=== PATIENT | male | born 1940 | race Caucasian/White ===

== ENCOUNTER 2016-12-01 10:17 | Emergency (ER) | payer MEDICARE ==
[2016-12-01] MEDS ORDERED: Albuterol/Ipratropium 3.0-0.5 MG/3 ML Neb Soln NEB PRN ×2 (13:16→17:54)
--- NOTE | 2016-12-01 13:20 | EDM.PDOC ---
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 uses oxygen normally with activity and bipap and oxygen for sleep. Has a pressure sensation in the mid chest. Denies cough. has had more wheezing. Denies fevers, although has felt chilled. No hx of CHF. Onset Date: 11/29/16 Duration: Getting Worse Location: Reports: Chest Quality: Reports: Pressure Severity: Mild Improves with: Reports: Rest Worsens with: Reports: Movement Context: Reports: Activity Associated Symptoms: Reports: Chest Pain, Fever/Chills, Shortness of Breath. Denies: Cough, Loss of Appetite, Nausea/Vomiting Chest Pain Score (Numeric/FACES): 4 - Related Data Allergies Allergy/AdvReac Type Severity Reaction Status Date / Time amitriptyline Allergy Cannot Verified 12/01/16 11:10 Remember imipenem Allergy Cannot Verified 12/01/16 11:10 Remember Sulfa (Sulfonamide Allergy Rash Verified 12/01/16 11:10 Antibiotics) Home Meds: Home Meds Albuterol/Ipratropium [DuoNeb 3.0-0.5 MG/3 ML] 3 ml .XX QID PRN #1 box 12/01/16 [Rx] Aspirin [Children's Aspirin] 81 mg PO DAILY 12/01/16 [History] Cetirizine [ZyrTEC] 10 mg PO DAILY 12/01/16 [History] Cyanocobalamin (Vitamin B12) [Vitamin B13] 500 mcg PO DAILY 12/01/16 [History] Diphenoxylate HCl/Atropine [Lomotil Tablet] 1 each PO ASDIRECTED PRN 12/01/16 [ History] Esomeprazole [NexIUM] 40 mg PO ACBREAKFAST 12/01/16 [History] Fluticasone/Salmeterol [Advair 250-50 Diskus] 1 each IH BID 12/01/16 [History] Furosemide [Lasix] 20 mg PO ASDIRECTED 12/01/16 [History] Ipratropium [Atrovent 0.06% Nasal [place]] 2 sprays TOP QID PRN 12/01/16 [History] Levalbuterol Tartrate [Xopenex Hfa] 2 puff IN ASDIRECTED PRN 12/01/16 [History] Levothyroxine Sodium [Synthroid] 175 mcg PO ACBREAKFAST 12/01/16 [History] SUMAtriptan [Imitrex] 50 mg PO ASDIRECTED PRN 12/01/16 [History] Tiotropium [Spiriva] 18 mcg INH DAILY 12/01/16 [History] atorvaSTATin Calcium [Atorvastatin Calcium] 20 mg PO BEDTIME 12/01/16 [History] Past Medical History HEENT History: Reports: Cataract Other HEENT History: sensorineural hearing loss Cardiovascular History: Reports: CAD, High Cholesterol, [place], Stents Respiratory History: Reports: Bronchitis, Recurrent, COPD, Interstitial Lung Disease, Sleep Apnea, SOB Other Respiratory History: bi-pap. tracheitis. chronic respiratory failure with hypoxia Gastrointestinal History: Reports: Colon Polyp, GERD Genitourinary History: Reports: Urinary Incontinence, Other (See Below) Other Genitourinary History: over active bladder. ED Musculoskeletal History: Reports: Fracture Other Musculoskeletal History: left ankle Neurological History: Reports: Brain Injury, Head Trauma, Migraines, Seizure Other Neuro History: Peti mal Endocrine/Metabolic History: Reports: Obesity/BMI 30+, Other (See Below) Other Endocrine/Metabolic History: Elvis disease Hematologic History: Reports: Anemia Oncologic (Cancer) History: Reports: Prostate - Infectious Disease History Infectious Disease History: Reports: Chicken Pox, Measles, Mumps, Shingles - Past Surgical History HEENT Surgical History: Reports: Cataract Surgery Cardiovascular Surgical History: Reports: Coronary Artery Stent, Percutaneous Transluminal Angioplasty GI Surgical History: Reports: Appendectomy, Cholecystectomy, Colonoscopy, EGD, Hernia Repair/Other, Polypectomy, Other (See Below) Other GI Surgeries/Procedures: esphogeal dilation Male Surgical History: Reports: Prostatectomy Other Endocrine Surgeries/Procedures: partial thyroidectomy Social & Family History - Tobacco Use Smoking Status *Q: Never Smoker - Caffeine Use Caffeine Use: Reports: Coffee - Recreational Drug Use Recreational Drug Use: No ED ROS GENERAL - Review of Systems Review Of Systems: See Below Constitutional: Reports: Chills. Denies: Fever, Decreased Appetite HEENT: Reports: No Symptoms Respiratory: Reports: Shortness of Breath, Wheezing. Denies: Pleuritic Chest Pain, Cough, Sputum Cardiovascular: Reports: Chest Pain, Dyspnea on Exertion. Denies: Edema, Lightheadedness Endocrine: Reports: No Symptoms GI/Abdominal: Reports: No Symptoms : Reports: No Symptoms Musculoskeletal: Reports: No Symptoms Skin: Reports: No Symptoms Neurological: Reports: No Symptoms Psychiatric: Reports: No Symptoms Hematologic/Lymphatic: Reports: No Symptoms ED EXAM, GENERAL - Physical Exam Exam: See Below Exam Limited By: No Limitations General Appearance: Alert, WD/WN, No Apparent Distress Ears: Normal External Exam, Normal Canal, Normal TMs Nose: Normal Inspection, Normal Mucosa, No Blood Throat/Mouth: Normal Inspection Head: Atraumatic, Normocephalic Neck: Normal Inspection, Supple, Non-Tender Respiratory/Chest: No Respiratory Distress, Crackles (bilaterally) Cardiovascular: Normal Peripheral Pulses, Regular Rate, Rhythm, No Edema GI/Abdominal: Normal Bowel Sounds, Soft Back Exam: Normal Inspection, Full Range of Motion Extremities: Normal Inspection, No Pedal Edema, Normal Capillary Refill Neurological: Alert, Oriented, CN II-XII Intact Psychiatric: Normal Affect, Normal Mood Skin Exam: Warm, Dry Lymphatic: No Adenopathy Course - Vital Signs Last Recorded V/S: Last Vital Signs Temp 36.5 C 12/01/16 10:57 Pulse 66 12/01/16 17:54 Resp 18 12/01/16 17:54 BP 136/76 12/01/16 17:54 Pulse Ox 93 L 12/01/16 17:54 - Orders/Labs/Meds Labs: Laboratory Tests 12/01/16 12/01/16 12/01/16 Range/Units 13:23 13:23 13:23 WBC 7.1 (4.5-11.0) K/uL RBC 5.09 (4.30-5.90) M/uL Hgb 15.4 H (12.0-15.0) g/dL Hct 45.9 (40.0-54.0) % MCV 90 (80-98) fL MCH 30 (27-31) pg MCHC 34 (32-36) % Plt Count 263 (150-400) K/uL Neut % (Auto) 60 (36-66) % Lymph % (Auto) 27 (24-44) % Todd % (Auto) 9 H (2-6) % Eos % (Auto) 3 (2-4) % Baso % (Auto) 0 (0-1) % D-Dimer, Quantitative 630 H (0.0-400.0) ng/mL Sodium 142 (140-148) mmol/L Potassium 4.5 (3.6-5.2) mmol/L Chloride 106 (100-108) mmol/L Carbon Dioxide 28 (21-32) mmol/L Anion Gap 7.8 (5.0-14.0) mmol/L BUN 18 (7-18) mg/dL Creatinine 1.1 (0.8-1.3) mg/dL Est Cr Clr Drug Dosing 64.57 mL/min Estimated GFR (MDRD) > 60 (>60) Glucose 104 (74-106) mg/dL Calcium 8.4 L (8.5-10.1) mg/dL Troponin I < 0.017 (0.000-0.056) ng/mL [id number] Pept 89 (5-450) pg/mL Meds: Medications Discontinued Medications Generic Name Dose Route Start Last Admin Trade Name Freq PRN Reason Stop Dose Admin Albuterol/Ipratropium 3 ml 12/01/16 13:16 12/01/16 13:26 Duoneb 3.0-0.5 Mg/3 Ml NEB 3 ml Q4H PRN Administration Dyspnea Albuterol/Ipratropium 3 ml 12/01/16 17:54 12/01/16 18:07 Duoneb 3.0-0.5 Mg/3 Ml NEB 12/01/16 21:55 3 ml Q4H PRN Administration Dyspnea Sodium Chloride 80 mls @ 3 mls/sec 12/01/16 16:15 12/01/16 16:42 Normal Saline IV 3 mls/sec ASDIRECTED ALEKSEY Administration Iopamidol 100 ml 12/01/16 16:15 12/01/16 16:42 Isovue-370 (76%) IV 100 ml . DIRECTED ALEKSEY Administration Sodium Chloride 10 ml 12/01/16 16:11 12/01/16 16:42 Saline Flush FLUSH 10 ml ASDIRECTED PRN Administration Keep Vein Open - Re-Assessments/Exams Free Text/Narrative Re-Assessment/Exam: 12/01/16 17:56 had improvement after duoneb, feeling near baseline. D-dimer elevated. Pulmonary CT done with no sign of PE Departure - Departure Time of Disposition: 18:50 Disposition: Home, Self-Care 01 Condition: Fair Clinical Impression: COPD exacerbation - Discharge Information Prescriptions: Albuterol/Ipratropium [DuoNeb 3.0-0.5 MG/3 ML] 3 ml .XX QID PRN #1 box PRN Reason: Dyspnea Instructions: Chronic Obstructive Pulmonary Disease Exacerbation, [id number] Referrals: Elina Downs MD [Primary Care Provider] - Forms: ED Department Discharge Additional Instructions: ask that you try the duonebs, continue your home oxygen. Follow-up with your provider in next week for follow-up - Problem List & Annotations (1) COPD with exacerbation SNOMED Code(s): 030993362, [id number] Code(s): J44.1 - CHRONIC OBSTRUCTIVE PULMONARY DISEASE W (ACUTE) EXACERBATION Status: Chronic Priority: Medium - Problem List Review Problem List Initiated/Reviewed/Updated: Yes - Assessment/Plan Assessment:: Presenting with increased dyspnea. Has hx of pulmonary fibrosis and COPD. Using oxygen at home. Improved with duoneb. PE ruled out with CT scan Plan: Will be discharged to home with duonebs. Was given a nebulizer to use 4 times daily as needed. Ask that he follow-up with his PMD in next week
--- NOTE | 2016-12-01 13:34 | CR ---
Chest 1V Frontal INDICATION: Chest Pain FINDINGS: Relatively shallow inspiration. Mild cardiac enlargement with prominence of the interstiti um. Pulmonary vascularity at the upper limits of normal. No focal consolidation. Findings suggest early CHF. However, the interstitial changes appear somewhat chronic, and interstit ial fibrosis is not excluded. Clinically correlate with patient's history.
[2016-12-01] MEDS ORDERED: Sodium Chloride 0.9% 10 ML Syringe FLUSH PRN (16:11)
[2016-12-01] MEDS ORDERED: Iopamidol 755 Mg/ML 100 ML Bottle IV SCH (16:15)
[2016-12-01] MEDS ORDERED: Sodium Chloride 0.9% 80 ML IV SCH (16:15)
[2016-12-01 17:54] VITALS: BP 136/76
== END 2016-12-01 19:38 | disposition home or self-care (01) ==
LOC: JP.ED 10:17
DX: J44.1 Chronic obstructive pulmonary disease with (acute) exacerbation (principal); I25.2 Old myocardial infarction; I25.10 Atherosclerotic heart disease of native coronary artery without angina pectoris; E78.00 Pure hypercholesterolemia, unspecified; K21.9 Gastro-esophageal reflux disease without esophagitis; E66.9 Obesity, unspecified; D64.9 Anemia, unspecified; Z95.5 Presence of coronary angioplasty implant and graft; Z98.49 Cataract extraction status, unspecified eye; Z95.4 Presence of other heart-valve replacement; Z90.49 Acquired absence of other specified parts of digestive tract; Z79.82 Long term (current) use of aspirin; Z79.899 Other long term (current) drug therapy; Z88.2 Allergy status to sulfonamides; Z88.8 Allergy status to other drugs, medicaments and biological substances
CPT/HCPCS: 36415; 71010; 71275; 80048; 83880; 84484; 85025; 85379; 93005; 94640; 96360; 96361; 99285; J7030; J7050; J7620; Q9967; 93010; 99284

== ENCOUNTER 2017-09-11 09:25 | Emergency (ER) | payer MEDICARE ==
[2017-09-11] MEDS ORDERED: Nitroglycerin 0.4 MG Tab.SL SL PRN (10:13)
[2017-09-11] MEDS ORDERED: Morphine 4 MG/ML Syringe IVPUSH PRN (10:13)
[2017-09-11] MEDS ORDERED: Sodium Chloride 0.9% 10 ML Syringe FLUSH PRN ×2 (10:13→12:31)
--- NOTE | 2017-09-11 10:17 | EDM.PDOC ---
ED HPI GENERAL MEDICAL PROBLEM - General Chief Complaint: Chest Pain Stated Complaint: MEDICAL [facility] Time Seen by Provider: 09/11/17 10:07 Source of Information: Reports: Patient, RN Notes Reviewed History Limitations: Reports: No Limitations - History of Present Illness INITIAL COMMENTS - FREE TEXT/NARRATIVE: 77-year-old gentleman presents to the emergency department today complaint of chest pressure, he has a known history coronary artery disease was initially evaluated at the [facility] in [facility], [facility] the chest pressure started at 1 PM last night. He initially rated his chest pressure 7 out of 10. This improved however after he was given aspirin in the ambulance he did take 1 nitroglycerin at home without any relief he also complains of shortness of breath no diaphoresis or nausea - Related Data Allergies Allergy/AdvReac Type Severity Reaction Status Date / Time amitriptyline Allergy Cannot Verified 12/01/16 11:10 Remember imipenem Allergy Cannot Verified 12/01/16 11:10 Remember Sulfa (Sulfonamide Allergy Rash Verified 12/01/16 11:10 Antibiotics) Home Meds: Home Meds Albuterol/Ipratropium [DuoNeb 3.0-0.5 MG/3 ML] 3 ml .XX QID PRN #1 box 12/01/16 [Rx] Aspirin [Children's Aspirin] 81 mg PO DAILY 12/01/16 [History] Cetirizine [ZyrTEC] 10 mg PO DAILY 12/01/16 [History] Cyanocobalamin (Vitamin B12) [Vitamin B13] 500 mcg PO DAILY 12/01/16 [History] Diphenoxylate HCl/Atropine [Lomotil Tablet] 1 each PO ASDIRECTED PRN 12/01/16 [ History] Esomeprazole [NexIUM] 40 mg PO ACBREAKFAST 12/01/16 [History] Fluticasone/Salmeterol [Advair 250-50 Diskus] 1 each IH BID 12/01/16 [History] Furosemide [Lasix] 20 mg PO ASDIRECTED 12/01/16 [History] Ipratropium [Atrovent 0.06% Nasal [place]] 2 sprays TOP QID PRN 12/01/16 [History] Levalbuterol Tartrate [Xopenex Hfa] 2 puff IN ASDIRECTED PRN 12/01/16 [History] Levothyroxine Sodium [Synthroid] 175 mcg PO ACBREAKFAST 12/01/16 [History] SUMAtriptan [Imitrex] 50 mg PO ASDIRECTED PRN 12/01/16 [History] Tiotropium [Spiriva] 18 mcg INH DAILY 12/01/16 [History] atorvaSTATin Calcium [Atorvastatin Calcium] 20 mg PO BEDTIME 12/01/16 [History] Melatonin 3 mg PO DAILY 09/11/17 [History] Mirabegron [Myrbetriq] 50 mg PO DAILY 09/11/17 [History] Multivit with Calcium,Iron,Min [Essential Daily] 1 tab PO DAILY 09/11/17 [ History] Nitroglycerin [Nitrostat] 0.3 mg PO ASDIRECTED PRN 09/11/17 [History] Past Medical History HEENT History: Reports: Cataract Other HEENT History: sensorineural hearing loss Cardiovascular History: Reports: CAD, High Cholesterol, [place], Stents Respiratory History: Reports: Bronchitis, Recurrent, COPD, Interstitial Lung Disease, Sleep Apnea, SOB Other Respiratory History: bi-pap. tracheitis. chronic respiratory failure with hypoxia Gastrointestinal History: Reports: Colon Polyp, GERD Genitourinary History: Reports: Urinary Incontinence, Other (See Below) Other Genitourinary History: over active bladder. ED Musculoskeletal History: Reports: Fracture Other Musculoskeletal History: left ankle Neurological History: Reports: Brain Injury, Head Trauma, Migraines, Seizure Other Neuro History: Peti mal Endocrine/Metabolic History: Reports: Obesity/BMI 30+, Other (See Below) Other Endocrine/Metabolic History: Elvis disease Hematologic History: Reports: Anemia Oncologic (Cancer) History: Reports: Prostate - Infectious Disease History Infectious Disease History: Reports: Chicken Pox, Measles, Mumps, Shingles - Past Surgical History HEENT Surgical History: Reports: Cataract Surgery Cardiovascular Surgical History: Reports: Coronary Artery Stent, Percutaneous Transluminal Angioplasty GI Surgical History: Reports: Appendectomy, Cholecystectomy, Colonoscopy, EGD, Hernia Repair/Other, Polypectomy, Other (See Below) Other GI Surgeries/Procedures: esphogeal dilation Male Surgical History: Reports: Prostatectomy Other Endocrine Surgeries/Procedures: partial thyroidectomy Social & Family History - Tobacco Use Smoking Status *Q: Never Smoker - Caffeine Use Caffeine Use: Reports: Coffee - Recreational Drug Use Recreational Drug Use: No ED ROS GENERAL - Review of Systems Review Of Systems: See Below Constitutional: Reports: No Symptoms HEENT: Reports: No Symptoms Respiratory: Reports: Shortness of Breath. Denies: Cough, Sputum Cardiovascular: Reports: Chest Pain, Dyspnea on Exertion GI/Abdominal: Reports: No Symptoms : Reports: No Symptoms Musculoskeletal: Reports: No Symptoms Skin: Reports: No Symptoms Neurological: Reports: No Symptoms ED EXAM, GENERAL - Physical Exam Exam: See Below Free Text/Narrative:: General: Male, not in any distress, alert and oriented x3 HEENT: head is atraumatic normocephalic, eyes pupils equal round reactive to light, sclera clear no conjunctivitis appreciated. Ears tympanic membranes clear and gonzalez landmarks and light reflex are present bilaterally canals are clear. Nose no septal deviation, nares are clear, no blood present. Mouth mucosa is moist and pink no erythema or exudate noted in soft palate, tongue is midline uvula is midline, dentition is intact. Neck: Supple no thyromegaly no tracheal deviation. Nodes: Cervical nodes subclavicular nodes nontender no palpable lymphadenopathy noted. Lungs: clear to auscultation bilaterally with symmetrical respirations, no adventitious noise appreciated. CV: Regular rate and rhythm S1 and S2 appreciated no murmurs rubs or gallops noted. Abdomen: Soft, nontender, no palpable masses or organomegaly appreciated, no distention no guarding bowel sounds are present, . Neuro: Cranial nerves II through XII grossly intact Skin: Warm and dry, intact Extremities: No lower extremity edema appreciated, pedal pulse is +2. Course - Vital Signs Last Recorded V/S: Last Vital Signs Temp 98.5 F 09/11/17 09:42 Pulse 64 09/11/17 15:47 Resp 16 09/11/17 15:47 BP 109/52 L 09/11/17 15:47 Pulse Ox 95 09/11/17 15:47 - Orders/Labs/Meds Orders: Active Orders 24 hr Category Date Time Status Cardiac Monitoring [RC] .As Directed Care 09/11/17 10:13 Active EKG Documentation Completion [RC] ASDIRECTED Care 09/11/17 10:13 Active Peripheral IV Care [RC] . DIRECTED Care 09/11/17 10:13 Active Iopamidol [Isovue-370 (76%)] Med 09/11/17 12:45 Active 100 ml IV . DIRECTED Morphine Med 09/11/17 10:13 Active 4 mg IVPUSH Q10M PRN Nitroglycerin [Nitrostat] Med 09/11/17 10:13 Active 0.4 mg SL Q5M PRN Sodium Chloride 0.9% [Normal Saline] 100 ml Med 09/11/17 13:00 Active IV ASDIRECTED Sodium Chloride 0.9% [Saline Flush] Med 09/11/17 10:13 Active 10 ml FLUSH ASDIRECTED PRN Sodium Chloride 0.9% [Saline Flush] Med 09/11/17 12:31 Active 10 ml FLUSH ONETIME PRN Peripheral IV Insertion Adult [OM.PC] Stat Oth 09/11/17 10:13 Ordered Saline Lock Insert [OM.PC] Stat Oth 09/11/17 10:13 Ordered EKG 12 Lead [EK] Stat Ther 09/11/17 10:13 Ordered Medication Orders Sodium Chloride (Normal Saline) 100 mls @ 4 mls/sec IV ASDIRECTED ALEKSEY Iopamidol (Isovue-370 (76%)) 100 ml IV . DIRECTED ALEKSEY Last Admin: 09/11/17 13:03 Dose: 100 ml Morphine Sulfate (Morphine) 4 mg IVPUSH Q10M PRN PRN Reason: Chest Pain Stop: 09/12/17 10:13 Last Admin: 09/11/17 10:24 Dose: 4 mg Nitroglycerin (Nitrostat) 0.4 mg SL Q5M PRN PRN Reason: Chest Pain Stop: 09/12/17 10:13 Sodium Chloride (Saline Flush) 10 ml FLUSH ASDIRECTED PRN PRN Reason: Keep Vein Open Last Admin: 09/11/17 10:25 Dose: 10 ml Sodium Chloride (Saline Flush) 10 ml FLUSH ONETIME PRN PRN Reason: PER RADIOLOGY PROTOCOL Last Admin: 09/11/17 13:02 Dose: 10 ml Labs: Laboratory Tests 09/11/17 09/11/17 09/11/17 Range/Units 10:20 10:20 12:06 WBC 8.0 (4.5-11.0) K/uL RBC 4.82 (4.30-5.90) M/uL Hgb 14.7 (12.0-15.0) g/dL Hct 43.6 (40.0-54.0) % MCV 91 (80-98) fL MCH 31 (27-31) pg MCHC 34 (32-36) % Plt Count 180 (150-400) K/uL Neut % (Auto) 72 H (36-66) % Lymph % (Auto) 15 L (24-44) % Sunflower % (Auto) 12 H (2-6) % Eos % (Auto) 1 L (2-4) % Baso % (Auto) 0 (0-1) % D-Dimer, Quantitative 546 H (0.0-400.0) ng/mL Sodium 140 (140-148) mmol/L Potassium 4.7 (3.6-5.2) mmol/L Chloride 105 (100-108) mmol/L Carbon Dioxide 28 (21-32) mmol/L Anion Gap 7.1 (5.0-14.0) mmol/L BUN 18 (7-18) mg/dL Creatinine 1.1 (0.8-1.3) mg/dL Est Cr Clr Drug Dosing TNP Estimated GFR (MDRD) > 60 (>60) Glucose 110 H (74-106) mg/dL Calcium 8.6 (8.5-10.1) mg/dL Total Bilirubin 2.3 H (0.2-1.0) mg/dL AST 528 H (15-37) U/L ALT 511 H (12-78) U/L Alkaline Phosphatase 129 H (46-116) U/L Troponin I < 0.017 (0.000-0.056) ng/mL NT-Pro-B Natriuret Pep 79 (5-450) pg/mL Total Protein 6.3 L (6.4-8.2) g/dL Albumin 3.0 L (3.4-5.0) g/dL Globulin 3.3 (2.3-3.5) g/dL Albumin/Globulin Ratio 0.9 L (1.2-2.2) //18 Range/Units 15:06 WBC (4.5-11.0) K/uL RBC (4.30-5.90) M/uL Hgb (12.0-15.0) g/dL Hct (40.0-54.0) % MCV (80-98) fL MCH (27-31) pg MCHC (32-36) % Plt Count (150-400) K/uL Neut % (Auto) (36-66) % Lymph % (Auto) (24-44) % Sunflower % (Auto) (2-6) % Eos % (Auto) (2-4) % Baso % (Auto) (0-1) % D-Dimer, Quantitative (0.0-400.0) ng/mL Sodium (140-148) mmol/L Potassium (3.6-5.2) mmol/L Chloride (100-108) mmol/L Carbon Dioxide (21-32) mmol/L Anion Gap (5.0-14.0) mmol/L BUN (7-18) mg/dL Creatinine (0.8-1.3) mg/dL Est Cr Clr Drug Dosing Estimated GFR (MDRD) (>60) Glucose (74-106) mg/dL Calcium (8.5-10.1) mg/dL Total Bilirubin (0.2-1.0) mg/dL AST (15-37) U/L ALT (12-78) U/L Alkaline Phosphatase (46-116) U/L Troponin I < 0.017 (0.000-0.056) ng/mL NT-Pro-B Natriuret Pep (5-450) pg/mL Total Protein (6.4-8.2) g/dL Albumin (3.4-5.0) g/dL Globulin (2.3-3.5) g/dL Albumin/Globulin Ratio (1.2-2.2) Meds: Medications Generic Name Dose Route Start Last Admin Trade Name Freq PRN Reason Stop Dose Admin Sodium Chloride 100 mls @ 4 mls/sec 09/11/17 13:00 Normal Saline IV ASDIRECTED ALEKSEY Iopamidol 100 ml 09/11/17 12:45 09/11/17 13:03 Isovue-370 (76%) IV 100 ml . DIRECTED ALEKSEY Administration Morphine Sulfate 4 mg 09/11/17 10:13 09/11/17 10:24 Morphine IVPUSH 09/12/17 10:13 4 mg Q10M PRN Administration Chest Pain Nitroglycerin 0.4 mg 09/11/17 10:13 Nitrostat SL 09/12/17 10:13 Q5M PRN Chest Pain Sodium Chloride 10 ml 09/11/17 10:13 09/11/17 10:25 Saline Flush FLUSH 10 ml ASDIRECTED PRN Administration Keep Vein Open Sodium Chloride 10 ml 09/11/17 12:31 09/11/17 13:02 Saline Flush FLUSH 10 ml ONETIME PRN Administration PER RADIOLOGY PROTOCOL Discontinued Medications Generic Name Dose Route Start Last Admin Trade Name Freq PRN Reason Stop Dose Admin Sodium Chloride 100 mls @ 3 mls/sec 09/11/17 12:31 09/11/17 13:03 Normal Saline IV 09/11/17 12:32 3 mls/sec ONETIME ONE Administration Lactated Ringer's 1,000 mls @ 500 mls/hr 09/11/17 12:57 09/11/17 13:25 Ringers, Lactated IV 09/11/17 14:56 500 mls/hr BOLUS ONE Administration - Re-Assessments/Exams Free Text/Narrative Re-Assessment/Exam: 09/11/17 12:03 Heart score 5 Departure - Departure Time of Disposition: 16:00 Disposition: Home, Self-Care 01 Condition: Fair Clinical Impression: Atypical chest pain Referrals: PCP,None [Primary Care Provider] - Forms: ED Department Discharge Additional Instructions: Please followup with your primary care provider in 3-5 days if not better, please call return to the emergency department with worsening of symptoms. - My Orders Last 24 Hours: My Active Orders 09/11/17 10:13 Cardiac Monitoring [RC] .As Directed EKG Documentation Completion [RC] ASDIRECTED Peripheral IV Care [RC] . DIRECTED Morphine 4 mg IVPUSH Q10M PRN Nitroglycerin [Nitrostat] 0.4 mg SL Q5M PRN Sodium Chloride 0.9% [Saline Flush] 10 ml FLUSH ASDIRECTED PRN Peripheral IV Insertion Adult [OM.PC] Stat Saline Lock Insert [OM.PC] Stat EKG 12 Lead [EK] Stat 09/11/17 12:31 Sodium Chloride 0.9% [Saline Flush] 10 ml FLUSH ONETIME PRN 09/11/17 12:45 Iopamidol [Isovue-370 (76%)] 100 ml IV . DIRECTED 09/11/17 13:00 Sodium Chloride 0.9% [Normal Saline] 100 ml IV ASDIRECTED - Assessment/Plan Last 24 Hours: My Active Orders 09/11/17 10:13 Cardiac Monitoring [RC] .As Directed EKG Documentation Completion [RC] ASDIRECTED Peripheral IV Care [RC] . DIRECTED Morphine 4 mg IVPUSH Q10M PRN Nitroglycerin [Nitrostat] 0.4 mg SL Q5M PRN Sodium Chloride 0.9% [Saline Flush] 10 ml FLUSH ASDIRECTED PRN Peripheral IV Insertion Adult [OM.PC] Stat Saline Lock Insert [OM.PC] Stat EKG 12 Lead [EK] Stat 09/11/17 12:31 Sodium Chloride 0.9% [Saline Flush] 10 ml FLUSH ONETIME PRN 09/11/17 12:45 Iopamidol [Isovue-370 (76%)] 100 ml IV . DIRECTED 09/11/17 13:00 Sodium Chloride 0.9% [Normal Saline] 100 ml IV ASDIRECTED Plan: Assessment Acuity = acute Site and laterality = atypical chest pain complicated patient with known history of coronary artery disease and interstitial lung disease Etiology = unclear etiology possible early development of pneumonitis Manifestations = none Location of injury = Home Lab values = CBC unremarkable, d-dimer elevated at 546 of unclear significance total bilirubin elevated at 2.3 consistent hyperbilirubinemia AST elevated 528 and ALT elevated at 511 consists with elevated liver enzymes troponin was negative 23 hours apart albumin low at 3.[address] scan shows no pulmonary embolism but atelectasis and groundglass appearance concern for early development of pneumonitis Plan I did discuss results with him of labs and CT scan he is chest pain-free at this time further options including hospital admission, he prefers to follow-up with his primary care and will try this at home. I'm follow-up primary care 3-5 days for further evaluation This note was dictated using [employer] voice recognition software please call with any questions on syntax or damir.
--- NOTE | 2017-09-11 11:05 | CR ---
Moderate cardiomegaly. Interstitial thickening which may relate to pulmonary edema. Possible trace pl eural effusion left lung base.
[2017-09-11] MEDS ORDERED: Sodium Chloride 0.9% 100 ML IV ONE (12:31)
[2017-09-11] MEDS ORDERED: Iopamidol 755 Mg/ML 100 ML Bottle IV SCH ×2 (12:45→13:00)
[2017-09-11] MEDS ORDERED: Lactated Ringers 1,000 ML IV ONE (12:57)
[2017-09-11] MEDS ORDERED: Sodium Chloride 0.9% 100 ML IV SCH (13:00)
--- NOTE | 2017-09-11 13:49 | CT ---
CTA chest. Total DLP 476. Findings: Cardiomegaly. This is redemonstrated. Scattered small mediastinal and hilar lymph nodes. No dissection. No pulmonary artery embolus. Fibrotic changes redemonstrated. There is groundglass densi ties within the lung bases which is increased compared to prior. Low lung volumes however. Visualized portions of the adrenal glands are unremarkable. Right renal cyst. Moderate intrahepatic b iliary ductal dilatation. This has increased compared to prior but was evident to a degree on prior e xamination. Impression: 1. No PE. 2. Fibrotic changes. 3. Groundglass hazy densities may be result of atelectasis. Developing pneumonitis could have this ap pearance however. 4. Increasing intrahepatic biliary ductal dilatation. This was evident on prior but does appear to be increased.
[2017-09-11 15:48] VITALS: BP 109/52
== END 2017-09-11 16:57 | disposition home or self-care (01) ==
LOC: JP.ED 09:25
DX: R07.89 Other chest pain (principal); E78.00 Pure hypercholesterolemia, unspecified; I25.10 Atherosclerotic heart disease of native coronary artery without angina pectoris; I25.2 Old myocardial infarction; Z88.2 Allergy status to sulfonamides; Z79.82 Long term (current) use of aspirin; Z79.899 Other long term (current) drug therapy
CPT/HCPCS: 36415; 71045; 71275; 80053; 83880; 84484; 85025; 85379; 93005; 96360; 96361; 99285; J2270; J7030; J7050; J7120; Q9967; 93010